=== PATIENT | female | born 1980 | race Caucasian/White ===

== ENCOUNTER 2017-01-17 06:16 | Day surgery (SDC) | payer MEDICAID ==
[~2017-01-17] VITALS: Ht 162.6 cm; Wt 80.5 kg
--- NOTE | ~2017-01-17 | OR ---
PATIENT'S NAME: ARCHANA FERGUSON [facility] AGE: 36 Y [address] ROOM: [place] [address] LOCATION: GOBS ADMIT DATE: 01/17/2017 OR/Procedure Report DISCHARGE DATE: 01/17/2017 FAMILY PHYSICIAN: Rob Noe MD ATTENDING PHYSICIAN: Devika Rosas SURGEON: Devika Rosas MD HYDROMETEOROLOGIST: Trenton Mondragon. DATE OF PROCEDURE: 01/17/2017 PREOPERATIVE DIAGNOSIS: Incompetent cervix. POSTOPERATIVE DIAGNOSIS: Incompetent cervix. PROCEDURE: Placement of a cervical cerclage/Garza x2. ANESTHESIA: Spinal. ESTIMATED BLOOD LOSS: 10 mL CLINICAL INDICATION: Ms. Archana Ferguson is a 36-year-old female 6, para 3 who presents for a cervical cerclage placement approximately 15 weeks' gestational age. FINDINGS: Normal-appearing cervix and vagina. DESCRIPTION OF PROCEDURE: The patient was taken to the operating room, given spinal anesthesia with good results, placed in a lithotomy position, prepped and draped in usual fashion. Posterior weighted speculum and anterior vaginal retractor were inserted into the vagina. 0-Prolene suture was placed about the cervix in a pursestring fashion. A second 0-Prolene suture was placed about the cervix in a pursestring fashion. Suture bolsters were used fully. Each suture was tied down easily. Good hemostasis was obtained. Vaginal instruments were retrieved. The patient tolerated the procedure well and was taken to recovery room in good condition. DEVIKA ROSAS MD DHW/modl /[id number] d: 01/17/172246 t: 01/21/17705, OPERATIVE SUMMARY
[~2017-01-17 06:16] MED LIST: CLARITIN10 MG PO; LANSINOH7 GM TOP; PERCOCET 5-3251 EACH PO; PRENATAL 1+1)(P1 TAB PO; TUMS REGULAR ST1 TAB PO
[2017-01-17 06:47] LABS: BASOPHIL % 0.3 %; EOSINOPHIL # 0.5 K/uL (0.0-0.5); EOSINOPHIL % 5.3 %; HEMATOCRIT 37.9 % (33.0-46.0); HEMOGLOBIN 13.1 g/dL (11.0-15.0); IMMATURE GRANULOCYTE # 0.1 K/uL (0.0-0.3); IMMATURE GRANULOCYTE % 0.8 %; LYMPHOCYTE # 2.3 K/uL (0.8-4.0); LYMPHOCYTE % 25.7 %; MCH 31.3 pg (27.0-34.0); MCHC 34.6 gm/dL (32.0-36.5); MCV 90.7 fl (83.0-98.0); MONOCYTE # 0.7 K/uL (0.0-1.0); MONOCYTE % 7.6 %; MPV 10.9 fl (9.4-12.4); NEUTROPHIL # (ANC) 5.3 K/uL (1.8-7.8); NEUTROPHIL % 60.3 %; NRBC % 0 /100WBC (0-0.00); PLATELET COUNT 165 K/uL (150-450); RBC 4.18 M/uL (3.50-5.50); RDW-CV 13.4 % (11.9-14.6); WBC 8.8 K/uL (4.0-11.0)
[2017-01-17] MEDS ORDERED: NORCO 5-325 TA1 EACH PO (13:59)
== END 2017-01-17 14:15 | disposition disaster alternative care site (69) ==
LOC: GOBS 06:16 → GOBM 06:16 → GOBS 06:17 → GPOC 07:00 → GOBM 14:00 → GPOC 14:00 → GOBM 14:15
PROVIDERS: Obstetrics & Gynecology
PROC: 0UVC7ZZ Restriction of Cervix, Via Natural or Artificial Opening (ICD-10-PCS; principal; 2017-01-17)
DX: O34.32 Maternal care for cervical incompetence, second trimester (principal); O99.332 Smoking (tobacco) complicating pregnancy, second trimester; Z3A.15 15 weeks gestation of pregnancy; O09.522 Supervision of elderly multigravida, second trimester; O34.219 Maternal care for unspecified type scar from previous cesarean delivery
CPT/HCPCS: G0463; J7120